=== PATIENT | female | born 1945 | race Caucasian/White ===

== ENCOUNTER → 2019-07-05 11:15 | Outpatient (BNVA) | payer MEDICARE, SELFPAY | PROVIDERS: Family Provider Nurse Practitioner; PCP Nurse Practitioner; Visit Provider Nurse Practitioner | DX: I10 Essential (primary) hypertension (principal); K52.9 Noninfective gastroenteritis and colitis, unspecified; M79.2 Neuralgia and neuritis, unspecified; K22.70 Barrett's esophagus without dysplasia; E78.5 Hyperlipidemia, unspecified | CPT/HCPCS: 80053; 80061; 81003; 84443 ==

== ENCOUNTER → 2019-11-30 15:32 | Outpatient (BNVA) | payer MEDICARE, SELFPAY | PROVIDERS: Family Provider Nurse Practitioner; PCP Nurse Practitioner; Visit Provider Nurse Practitioner | DX: I10 Essential (primary) hypertension (principal); G89.29 Other chronic pain; M79.2 Neuralgia and neuritis, unspecified; E78.5 Hyperlipidemia, unspecified; K22.70 Barrett's esophagus without dysplasia; R01.1 Cardiac murmur, unspecified | CPT/HCPCS: 80053; 80061; 81000; 82607; 84443; 85025 ==

== ENCOUNTER 2020-04-28 07:59 | Outpatient (CLI) | payer MEDICARE, SELFPAY ==
--- NOTE | 2020-04-28 08:45 | USCV_ITS ---
CaseSavanna Age: 74 Gender: F : 1945 Exam Date: 04/28/2020 08:13 Ordering Phys: King Bernard MD ([email or web address]) Technologist: Yelitza Villegas [place] [facility] [place]: cardiac murmur BP: / HR: 55 Rhythm: Sinus Technical Quality: Good MEASUREMENTS (Male / Female) Normal Values 2D ECHO LV Diastolic Diameter PLAX 4.2 cm 4.2 - 5.9 / 3.9 - 5.3 cm LV Systolic Diameter PLAX 1.2 cm IVS Diastolic Thickness 0.9 cm 0.6 - 1.0 / 0.6 - 0.9 cm IVS Systolic Thickness 1.9 cm LVPW Diastolic Thickness 0.7 cm 0.6 - 1.0 / 0.6 - 0.9 cm LVPW Systolic Thickness 1.7 cm LVOT Diameter 1.3 cm LV Ejection Fraction 2D Teich 96.1 % LV Ejection Fraction MOD 2C 87.9 % LV Ejection Fraction 2C AL 89.6 % LA Diameter 4.5 cm LA Width 3.2 cm LA Height 5.9 cm RA Width 3.3 cm RA Height 5.3 cm Aorta at Sinotubular Diameter 2.4 cm M-MODE LV Diastolic Diameter MM 4.3 cm 4.2 - 5.9 / 3.9 - 5.3 cm LV Systolic Diameter MM 1.8 cm LV Ejection Fraction MM Teich 87.3 % IVS Diastolic Thickness MM 1.1 cm 0.6 - 1.0 / 0.6 - 0.9 cm IVS Systolic Thickness MM 1.1 cm LVPW Diastolic Thickness MM 0.8 cm 0.6 - 1.0 / 0.6 - 0.9 cm LVPW Systolic Thickness MM 1.9 cm Aortic Annulus Diameter 2.7 cm LA Ao Ratio MM 1.6 MV E Point Septal Separation 0.3 cm DOPPLER AV Peak Velocity 194.0 cm/s LVOT Peak Velocity 111.0 cm/s AV Area Cont Eq vti 1.2 cm squared AV Area Cont Eq pk 0.8 cm squared MV Peak Velocity 139.0 cm/s MV Area PHT 3.2 cm squared Mitral E to A Ratio 1.6 MV E' Velocity 64.0 cm/s Mitral E to MV E' Ratio 14.7 Mitral E to LV E' Lateral Ratio 16.3 Mitral E to LV E' Septal Ratio 13.4 TR Peak Velocity 249.0 cm/s TR Peak Gradient 24.8 mmHg Right Atrial Pressure 3.0 mmHg Pulmonary Artery Systolic Pressu 27.8 mmHg PV Peak Velocity 86.0 cm/s RV Acceleration Time 0.1 s RV Ejection Time 0.4 s RV AcT/ET 0.2 FINDINGS Left Ventricle Normal left ventricular cavity size. Normal left ventricular systolic function. Left ventricular ejection fraction is estimated at 60 %. No regional wall motion abnormalities. Grade II/IV diastolic dysfunction, moderately elevated filling pressures. Right Ventricle The right ventricle is normal in size and function. Right Atrium The right atrium is normal in size. Left Atrium Moderately increased left atrial size. Mitral Valve Moderately thickened mitral valve. No mitral valve stenosis. Moderate mitral valve regurgitation. Aortic Valve Structurally normal aortic valve without significant sclerosis or stenosis. There is no aortic regurgitation. Tricuspid Valve Brhtrfvo-by-fsksca tricuspid valve regurgitation. Pulmonic Valve Structurally normal pulmonic valve without significant stenosis. There is no pulmonic regurgitation. Pericardium Normal pericardium without effusion. Aorta Normal ascending aorta dimension. CONCLUSIONS 1-Normal left ventricular cavity size. Normal left ventricular systolic function. Left ventricular ejection fraction is estimated at 60 %. No regional wall motion abnormalities. Grade II/IV diastolic dysfunction, moderately elevated filling pressures. 2-Moderately increased left atrial size. 3-Moderately thickened mitral valve. No mitral valve stenosis. Moderate mitral valve regurgitation. 3-Jqpoiavz-ja-severe tricuspid valve regurgitation. 5-There is no pericardial effusion. 6-Right atrial pressure is around 5 mm of mercury. 7-There are no prior echocardiogram studies to compare. King Bernard MD (Electronically Signed) Final Date: 28 April 2020 20:34 S
== END 2020-04-28 08:00 | disposition home or self-care (01) ==
PROVIDERS: PCP Nurse Practitioner; Visit Provider Internal Medicine Cardiovascular Disease
DX: R01.1 Cardiac murmur, unspecified (principal); I34.0 Nonrheumatic mitral (valve) insufficiency; I07.1 Rheumatic tricuspid insufficiency
CPT/HCPCS: 93306

== ENCOUNTER → 2020-06-05 15:23 | Outpatient (BNVA) | payer MEDICARE, SELFPAY | PROVIDERS: PCP Nurse Practitioner; Visit Provider Nurse Practitioner | DX: E78.2 Mixed hyperlipidemia (principal); I10 Essential (primary) hypertension; M79.2 Neuralgia and neuritis, unspecified; G89.29 Other chronic pain; K22.70 Barrett's esophagus without dysplasia; E78.5 Hyperlipidemia, unspecified | CPT/HCPCS: 80053; 80061; 84443 ==

== ENCOUNTER → 2020-12-21 14:30 | Outpatient (BNVA) | payer MEDICARE, SELFPAY | PROVIDERS: PCP Nurse Practitioner; Visit Provider Nurse Practitioner | DX: M79.2 Neuralgia and neuritis, unspecified (principal); I10 Essential (primary) hypertension; G89.29 Other chronic pain; E78.2 Mixed hyperlipidemia; K22.70 Barrett's esophagus without dysplasia | CPT/HCPCS: 80053; 80061; 85025 ==

== ENCOUNTER 2021-02-02 08:46 | Outpatient (CLI) | payer MEDICARE, SELFPAY ==
--- NOTE | 2021-02-02 08:54 | CT_ITS ---
WS: [id number] CT NECK WITH CONTRAST HISTORY: Poking or sticking sensation in her left anterior neck. TECHNIQUE: Contiguous 5 mm axial images are performed through the neck with intravenous contrast. Sag ittal and coronal reformats are also submitted. All CT scans at [facility] use at least one o f these dose optimization techniques: automated exposure control; mA and/or kV adjustment per patient size (includes targeted exams where dose is matched to clinical indication); or iterative reconstruc tion. CONTRAST: CONTRAST: Omnipaque 300; 95 mL IV. DLP: 838.91 mGycm COMPARISON: 12/10/2006 There is artifact causing partial obscuration of the tongue base from dental amalgam. Nasopharynx, oropharynx, hypopharynx and larynx are unremarkable. No soft tissue masses or abnormal e nhancement. Torus tubarius and fossa of Rosenmuller and parapharyngeal fat are normal. No significant lymphadenopathy is identified. Small benign cervical chain lymph nodes but no enlarged lymph nodes. Very similar to the prior study from 2006. Thyroid gland and salivary glands are normally enhancing with no masses. No osseous abnormalities. Visualized portions of the skull base demonstrate no abnormalities. Orbits and globes are within norm al limits. No soft tissue masses. Small amount mucoperiosteal thickening in the posterior LEFT sphenoid sinus. No air-fluid levels. Lung apices are clear. CT/CT neck w con* [id number] IMPRESSION: Stable neck CT. No change since 2006. No suspicious mass or adenopathy.
[2021-02-02] MEDS: iohexol 300 mg/mL 100 mL Btl IV (09:13)
== END 2021-02-02 08:47 | disposition home or self-care (01) ==
PROVIDERS: PCP Nurse Practitioner; Visit Provider Internal Medicine
DX: M54.2 Cervicalgia (principal)
CPT/HCPCS: 70491; Q9967

== ENCOUNTER 2021-02-23 09:22 | Outpatient (CLI) | payer MEDICARE, SELFPAY ==
--- NOTE | 2021-02-23 10:00 | ECG_ITS ---
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 Measurements Intervals [place] Rate: 77 P: NE: QRS: -7 QRSD: 70 T: -6 QT: 358 QTc: 406 Interpretive Statements ATRIAL FIBRILLATION POSSIBLE ANTERIOR MYOCARDIAL INFARCTION , PROBABLY OLD [30 ms Q WAVE IN V3/V4, OR R < 0.2 mV IN V4] ABNORMAL RHYTHM ECG Compared to ECG 12/11/2018 14:19:20 Myocardial infarct finding now present Sinus bradycardia no longer present Electronically Signed On 02-23-2021 18:42:32 CDT by Al Decker M.D. [email or web address]
[2021-02-23 10:28] LABS: Basophils % 0.6 %; Eosinophils # 0.1 10^3/uL (0.0-0.8); Eosinophils % 1.5 %; Hematocrit 44.5 % (37.0-47.0); Hemoglobin 13.9 g/dL (11.5-15.3); Lymphocytes # 1.8 10^3/uL (0.8-4.8); Lymphocytes % 27.4 %; Mean Corpuscular HGB Conc 31.2 g/dL (30.0-36.0); Mean Corpuscular Hemoglobin 29.7 pg (28.0-34.0); Mean Corpuscular Volume 95.1 fl (81-99); Monocytes # 0.8 10^3/uL (0.2-0.9); Monocytes % 12.5 %; Neutrophils # 3.88 10^3/uL (1.8-7.7); Neutrophils % 57.7 %; Nucleated Red Blood Cells % 0 %; Platelet Count 205 10^3/cmm (130-400); Red Blood Count 4.68 10^6/uL (4.1-5.3); White Blood Count 6.7 10^3/uL (4.0-10.0)
[2021-02-23 10:48] LABS: Anion Gap 14.4 (5-19); Blood Urea Nitrogen 19 mg/dL (8-23); Carbon Dioxide 24 mmol/L (22-29); Chloride 106 mmol/L (98-107); Glucose 105 mg/dL (65-115); Osmolality Calculated 291 mOsm/kg (285-295); Potassium 5.4 mmol/L (3.5-5.1); Sodium 139 mmol/L (136-145)
== END 2021-02-23 09:23 | disposition home or self-care (01) ==
PROVIDERS: PCP Nurse Practitioner; Visit Provider Specialist
DX: H65.21 Chronic serous otitis media, right ear (principal); H69.81 Other specified disorders of Eustachian tube, right ear; H90.3 Sensorineural hearing loss, bilateral
CPT/HCPCS: 36415; 80048; 85025; 93005

== ENCOUNTER → 2021-05-14 14:43 | Outpatient (BNVA) | payer MEDICARE, SELFPAY | PROVIDERS: PCP Nurse Practitioner; Visit Provider Nurse Practitioner Family | DX: R07.81 Pleurodynia (principal); I51.7 Cardiomegaly | CPT/HCPCS: 71046 ==

== ENCOUNTER → 2021-07-10 09:51 | Outpatient (BNVA) | payer MEDICARE, SELFPAY | PROVIDERS: PCP Nurse Practitioner; Visit Provider Nurse Practitioner | DX: I10 Essential (primary) hypertension (principal) | CPT/HCPCS: 80048 ==

== ENCOUNTER → 2021-09-14 10:19 | Outpatient (BNVA) | payer MEDICARE, SELFPAY | PROVIDERS: PCP Nurse Practitioner; Visit Provider Nurse Practitioner | DX: I48.91 Unspecified atrial fibrillation (principal); I10 Essential (primary) hypertension; M79.2 Neuralgia and neuritis, unspecified; K22.70 Barrett's esophagus without dysplasia; E78.2 Mixed hyperlipidemia; J30.89 Other allergic rhinitis; J30.2 Other seasonal allergic rhinitis | CPT/HCPCS: 80053; 80061; 84443; 85025 ==

== ENCOUNTER 2021-10-09 10:07 | Outpatient (CLI) | payer MEDICARE, SELFPAY ==
--- NOTE | 2021-10-09 10:00 | FL_ITS ---
WS: [id number] Modified barium swallow, 10/09/2021 Clinical Data: R13.10 - Dysphagia, unspecified Comparison: None. Fluoroscopy time: 1min [id number] # of spot films: Findings: The patient initiated the oral bolus without hesitation. The various materials both thin and thick pr ogressed normally through the hypopharynx. There is no aspiration or penetration. FL/FL barium swallow modifd [id number] Impression: Normal modified barium swallow.
== END 2021-10-09 10:08 | disposition home or self-care (01) ==
LOC: RAD 10:09
PROVIDERS: PCP Nurse Practitioner; Visit Provider Nurse Practitioner
DX: R13.10 Dysphagia, unspecified (principal)
CPT/HCPCS: 74230; 92611

== ENCOUNTER → 2022-03-06 11:56 | Outpatient (BNVA) | payer MEDICARE, SELFPAY | PROVIDERS: PCP Nurse Practitioner; Visit Provider Internal Medicine Cardiovascular Disease | DX: M79.673 Pain in unspecified foot (principal); I48.91 Unspecified atrial fibrillation; Z79.01 Long term (current) use of anticoagulants; K22.70 Barrett's esophagus without dysplasia; I10 Essential (primary) hypertension; E78.2 Mixed hyperlipidemia; Z87.891 Personal history of nicotine dependence | CPT/HCPCS: 99213 ==

== ENCOUNTER → 2022-04-08 14:54 | Outpatient (BNVA) | payer MEDICARE, SELFPAY | PROVIDERS: PCP Nurse Practitioner; Visit Provider Nurse Practitioner | DX: I10 Essential (primary) hypertension (principal); M79.2 Neuralgia and neuritis, unspecified; K22.70 Barrett's esophagus without dysplasia; I48.91 Unspecified atrial fibrillation; E78.2 Mixed hyperlipidemia; G89.29 Other chronic pain; J30.89 Other allergic rhinitis; J30.2 Other seasonal allergic rhinitis | CPT/HCPCS: 80053; 80061; 84443 ==

== ENCOUNTER 2022-04-22 12:35 | Outpatient (CLI) | payer MEDICARE, SELFPAY ==
--- NOTE | 2022-04-22 13:45 | USCV_ITS ---
CaseSavanna Age: 76 Gender: F : 1945 Exam Date: 04/22/2022 13:04 Ordering Phys: Rachid Hall MD ([email or web address]) Technologist: Jami Thorne Exam Location: [facility] [place] Indication: Foot numbness and pain Risk Factors: Unknown Previous Vascular Surgery: None RIGHT LEFT BP: 157.0 / 75.00 BP: 153.0/ 89.00 0 0 Waveform Velocity (cm/s) Velocity (cm/s) Waveform Biphasic 78.9 Iliac Prox 95.9 Biphasic Biphasic Iliac Mid Biphasic 65.2 93.4 Biphasic 47.2 Iliac Distal 103.5 Biphasic Biphasic 68.6 MATHEMATICS EDUCATION PROFESSOR 97.2 Biphasic Biphasic 61.7 SFA Prox 64.3 Biphasic Biphasic 56.9 SFA Mid 71.9 Biphasic Biphasic 55.5 SFA Dist 53.0 Biphasic Biphasic 53.4 POP 59.3 Biphasic Biphasic 38.4 INSPECTOR SUBASSEMBLIES 27.8 Biphasic Biphasic 16.9 DPA 32.2 Biphasic 0.9 OMAR 1.0 FINDINGS RT INSPECTOR SUBASSEMBLIES 140 RT DPA 130 LT INSPECTOR SUBASSEMBLIES 90 LT DPA 150 Resting OMRA of 0.9 on the right and 1.0 on the left side Mild to moderate diffuse plaque in the iliac and femoral arteries bilaterally CONCLUSIONS 1. Mild to moderate diffuse plaques in the iliac and femoral arteries bilaterally 2. Slightly diminished resting OMAR of 0.9 on the right side suggesting mild peripheral artery disease 3. Normal resting OMAR of 1.0 on the left side, suggesting no significant arterial obstruction. No similar previous studies are available for comparison Dr Rissa Smith MD [facility] (Electronically Signed) Final Date: 23 April 2022 21:28 S
== END 2022-04-22 12:36 | disposition home or self-care (01) ==
PROVIDERS: PCP Nurse Practitioner; Visit Provider Internal Medicine Cardiovascular Disease
DX: M79.671 Pain in right foot (principal); M79.672 Pain in left foot
CPT/HCPCS: 93925

== ENCOUNTER 2022-07-05 09:53 | Outpatient (CLI) | payer MEDICARE, SELFPAY ==
--- NOTE | 2022-07-05 10:03 | FL_ITS ---
WS: [id number] Exam: FL barium swallow [id number] Date/Time of Exam: 07/05/2022 10:24 AM Reason For Exam: OTHER DYSPHAGIA Fluoroscopy time: 1min [id number] minutes # of spot films: 9 Swallowing function at the level of oropharynx was normal. The esophagus is smooth in contour with no rmal motility. No esophageal mass or stricture. No hiatal hernia or gastroesophageal reflux. The esop hagus is not displaced. No aspiration or penetration identified. FL/FL barium swallow [id number] IMPRESSION: 1. Negative esophagram.
== END 2022-07-05 09:54 | disposition home or self-care (01) ==
LOC: RAD 09:56
PROVIDERS: PCP Nurse Practitioner; Visit Provider Specialist
DX: R13.19 Other dysphagia (principal)
CPT/HCPCS: 74220

== ENCOUNTER → 2022-07-15 14:20 | Outpatient (BNVA) | payer MEDICARE, SELFPAY | PROVIDERS: PCP Nurse Practitioner; Visit Provider Nurse Practitioner Family | DX: R19.7 Diarrhea, unspecified (principal); R19.5 Other fecal abnormalities | CPT/HCPCS: 87493; 87506 ==

== ENCOUNTER → 2022-07-16 10:35 | Outpatient (BNVA) | payer MEDICARE, SELFPAY | PROVIDERS: PCP Nurse Practitioner; Visit Provider Nurse Practitioner Family | DX: R19.7 Diarrhea, unspecified (principal) | CPT/HCPCS: 82274 ==

== ENCOUNTER → 2022-07-18 14:58 | Outpatient (BNVA) | payer MEDICARE, SELFPAY | PROVIDERS: PCP Nurse Practitioner; Visit Provider Nurse Practitioner Family | DX: I48.91 Unspecified atrial fibrillation (principal); I10 Essential (primary) hypertension; Z87.891 Personal history of nicotine dependence; Z79.01 Long term (current) use of anticoagulants | CPT/HCPCS: 93005; 99214 ==

== ENCOUNTER 2022-07-23 08:15 | Outpatient (CLI) | payer MEDICARE, SELFPAY ==
[2022-07-23 09:31] VITALS: BMI 29.2
--- NOTE | 2022-07-23 09:31 | NMCV_ITS ---
NM marisol perf SPECT r/s* [id number] Case, Savanna Age: 77 Gender: F : 1945 Exam Date: 07/23/2022 09:31 Ordering Phys: Jodi Lara Technologist: CONTRERAS Garcia Exam Location: [facility] [place] Indications: AFIB STRESS TEST Please see separate stress test report in [facility] for full findings IMAGE PROTOCOL Rest/Stress 1 Lexiscan Day Radiopharmaceutical Dose (mCi) Administration Site Administered by Rest: Tc-99m 10.7 IV CONTRERAS Melchor Sestamibi Stress:Tc-99m 33.0 IV CONTRERAS Melchor Sestamibi Rest: 23-Jul-2022 60 Discovery 630 Stress: 23-Jul-2022 30 Discovery 630 0.4mg Lexiscan. Images obtained in supine and prone position. SPECT RESULTS Technical Quality: Excellent Raw Data Analysis: Normal Image Corrections: No attenuation or motion correction applied Summed Stress Score: 0 Summed Rest Score: 0 Summed Difference Score: 0 PERFUSION FINDINGS Fairly uniform myocardial tracer uptake with no significant perfusion abnormalities FUNCTIONAL RESULTS (calculated via Gated SPECT) Stress Image LV EF (%): 85 Stress EDV (mL):40 TID: 1.19 Stress ESV (mL):6 FUNCTIONAL FINDINGS: Segmental wall motion analysis revealing no gross wall motion abnormalities. The transient ischemic dilatation ratio was found to be elevated to 1.19 IMPRESSIONS 1. Myocardial perfusion imaging revealing fairly uniform myocardial tracer uptake with no significant perfusion abnormalities. 2. Normal LV ejection fraction of 83%. 3. LV wall motion analysis revealing no gross wall motion abnormalities. 4. Normal LV volume 5. Slightly elevated transient ischemic dilatation ratio of 1.19 may assess endocardial ischemia. However the positive predictive value of this finding is limited. No similar previous studies are available for comparison. Low probability for coronary ischemia, based on the above findings Dr Rissa Smith MD [facility] (Electronically Signed) Final Date: 23 July 2022 12:06 S
--- NOTE | 2022-07-23 09:31 | ECG_ITS ---
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 Interpretive Statements NAME OF STUDY: LEXISCAN SESTAMIBI STRESS TEST INDICATION: Chest Pain, PROCEDURE: At the baseline, the EKG revealed atrial fibrillation with a controlled ventricular response rate of 70 bpm. The baseline heart was 70 bpm with a blood pressue of 145/76 mm of Hg Lexiscan was infused over a period of 20 seconds. A total of 0.4 milligrams of Lexiscan was infused. The stress phase was continued for a total of 5 minutes. Heart rate at the end of the stress phase was 86 bpm with a blood pressure 170/78 mm of Hg. The EKG at the peak infusion revealed no significant changes. Sestamibi was injected 20 seconds after the Lexiscan infusion. Heart rate at the end of the recovery phase was 84 bpm with a blood pressure of 132/87 mm of Hg. no significant changes Chest Pain, CONCLUSION: 1. No significant EKG changes with the LexiScan infusion 2. No LexiScan induced chest pain or cardiac arrhythmia 3. Normal blood pressure and heart rate response 4. Sestamibi/sestamibi perfusion scan pending; see separate report. Electronically Signed On 07-23-2022 15:46:08 CDT by Rissa Smith M.D. [id number]
[2022-07-23] MEDS: regadenoson 0.4 Mg/5 ml Syringe IVP (10:21)
[2022-07-23 10:36] VITALS: BP 132/87; PULSE 76
== END 2022-07-23 08:16 | disposition home or self-care (01) ==
PROVIDERS: PCP Nurse Practitioner; Visit Provider Nurse Practitioner Family
DX: R07.9 Chest pain, unspecified (principal)
CPT/HCPCS: 36415; 78452; 93017; 96374; A9500; J2785

== ENCOUNTER → 2022-08-13 15:14 | Outpatient (BNVA) | payer MEDICARE, SELFPAY | PROVIDERS: PCP Nurse Practitioner; Visit Provider Orthopaedic Surgery | DX: M65.311 Trigger thumb, right thumb (principal) | CPT/HCPCS: 20550; 99203; J0702; J3490 ==

== ENCOUNTER → 2022-09-03 09:37 | Outpatient (BNVA) | payer MEDICARE, SELFPAY | PROVIDERS: PCP Nurse Practitioner; Visit Provider Podiatrist Foot & Ankle Surgery | DX: M21.6X1 Other acquired deformities of right foot (principal); M21.6X2 Other acquired deformities of left foot; M77.41 Metatarsalgia, right foot; M77.42 Metatarsalgia, left foot; L90.9 Atrophic disorder of skin, unspecified; M54.16 Radiculopathy, lumbar region | CPT/HCPCS: 73630; 99203 ==

== ENCOUNTER → 2022-09-04 11:58 | Outpatient (BNVA) | payer MEDICARE, SELFPAY | PROVIDERS: PCP Nurse Practitioner; Visit Provider Internal Medicine Cardiovascular Disease | DX: I48.91 Unspecified atrial fibrillation (principal); Z79.01 Long term (current) use of anticoagulants; I10 Essential (primary) hypertension; E78.2 Mixed hyperlipidemia; Z87.891 Personal history of nicotine dependence | CPT/HCPCS: 99213 ==

== ENCOUNTER → 2022-10-21 11:40 | Outpatient (BNVA) | payer MEDICARE, SELFPAY | PROVIDERS: PCP Nurse Practitioner; Visit Provider Nurse Practitioner | DX: I10 Essential (primary) hypertension (principal); E78.5 Hyperlipidemia, unspecified | CPT/HCPCS: 80053; 80061; 84443; 85025 ==

== ENCOUNTER 2022-10-30 11:46 | Outpatient (CLI) | payer MEDICARE, SELFPAY ==
--- NOTE | 2022-10-30 12:00 | US_ITS ---
WS: [id number] ULTRASOUND THYROID TECHNIQUE: Ultrasound of the thyroid. CLINICAL INFORMATION: E04.9 - Nontoxic goiter, unspecified COMPARISON: None. FINDINGS: Thyroid: Diffusely heterogeneous and somewhat enlarged thyroid gland for patient this age. No suspici ous nodules to target for biopsy Correlation with thyroid function studies. Right thyroid lobe: 4.2 cm x 1.5 cm x 1.3 cm Left thyroid lobe: 3.0 cm x 1.7 cm x 1.7 cm. Isthmus: 0.7 mm. Cervical lymphadenopathy: None. US/US thyroid [id number] IMPRESSION: 1. Thyroid enlargement for patient this age with diffuse heterogeneous thyroid echotexture.Correlation with thyroid function studies. 2. No suspicious nodules to target for biopsy.
== END 2022-10-30 11:47 | disposition home or self-care (01) ==
PROVIDERS: PCP Nurse Practitioner; Visit Provider Nurse Practitioner
DX: E04.9 Nontoxic goiter, unspecified (principal)
CPT/HCPCS: 76536

== ENCOUNTER → 2022-11-14 09:43 | Outpatient (BNVA) | payer MEDICARE, SELFPAY | PROVIDERS: PCP Nurse Practitioner; Visit Provider Nurse Practitioner | DX: E04.9 Nontoxic goiter, unspecified (principal) | CPT/HCPCS: 84439; 84481; 86800 ==

== ENCOUNTER 2022-11-25 15:58 | Outpatient (CLI) | payer MEDICARE, SELFPAY ==
--- NOTE | 2022-11-25 16:28 | CTR_ITS ---
PROCEDURE INFORMATION: Exam: CT Chest Without Contrast; Diagnostic Exam date and time: 11/25/2022 4:45 PM Age: 77 years old Clinical indication: Shortness of breath; Additional info: R06.02 - shortness of breath TECHNIQUE: Imaging protocol: Diagnostic computed tomography of the chest without contrast. Radiation optimization: All CT scans at this facility use at least one of these dose optimization techniques: automated exposure control; mA and/or kV adjustment per patient size (includes targeted exams where dose is matched to clinical indication); or iterative reconstruction. REPORTING DATA: Count of CT and Cardiac NM exams in prior 12 months: This patient has received [address] and 0 known cardiac nuclear medicine studies in the 12 months prior to the current study. COMPARISON: CR XR chest 2V* [id number] 05/14/2021 2:42 PM RADIATION DOSE METRICS: Total DLP (mGy-cm): 205.04 FINDINGS: Lungs: 4 mm solid nodule in the anterior segment of the right upper lobe (axial series 5, image 20). 4 mm solid nodule in the lateral basal segment of the right lower lobe (axial series 5, image 34). 6 mm pleural-based nodule in the lateral basal segment of the left lower lobe (axial series 5, image 45). Calcified granuloma in the lingula. No significant airspace consolidation concerning for pneumonia. Pleural spaces: No pleural effusion. No pneumothorax. Heart: The heart is within normal limits for size. There is no evidence of pericardial abnormality. Coronary arteries: Coronary artery calcifications noted. Lymph nodes: The supraclavicular region appears normal. There are no enlarged lymph nodes in the axilla. There are no enlarged lymph nodes in the mediastinal or hilar regions. Vasculature: Unremarkable. No aortic aneurysm. Stomach and bowel: Postsurgical changes at the gastroesophageal junction. Bones/joints: Multilevel degenerative changes in the spine. Soft tissues: Unremarkable. CT/CT chest wo con [id number] IMPRESSION: 1. No significant airspace consolidation concerning for pneumonia. 2. Multiple pulmonary nodules noted, the largest of which measures up to 6 mm. For patients at low risk (minimal or absent history of smoking and of other known risk factors), recommend CT Chest at 6-12 months, then consider CT Chest at 18-24 months. For patients at high risk (history of smoking or of other known risk factors), recommend CT Chest at 6-12 months, then CT Chest at 18-24 months. (Reference: Jaylen) REFERENCES: Jaylen Juárez, et al. Guidelines for Management of Incidental Pulmonary Nodules Detected on CT Images: From the Fleischner Society 2017. Radiology. 2017;284(1):228-243.
== END 2022-11-25 15:59 | disposition home or self-care (01) ==
PROVIDERS: PCP Nurse Practitioner; Visit Provider Nurse Practitioner
DX: R06.02 Shortness of breath (principal); R19.8 Other specified symptoms and signs involving the digestive system and abdomen
CPT/HCPCS: 71250; 80053; 80061; 84443; 85025

== ENCOUNTER → 2023-03-27 16:35 | Outpatient (BNVA) | payer MEDICARE, SELFPAY | PROVIDERS: PCP Nurse Practitioner; Visit Provider Nurse Practitioner | DX: I48.91 Unspecified atrial fibrillation (principal) | CPT/HCPCS: 85610 ==

== ENCOUNTER → 2023-04-09 11:40 | Outpatient (BNVA) | payer MEDICARE, SELFPAY | PROVIDERS: PCP Nurse Practitioner; Visit Provider Nurse Practitioner | DX: I48.91 Unspecified atrial fibrillation (principal) | CPT/HCPCS: 85610 ==

== ENCOUNTER → 2023-04-14 09:15 | Outpatient (BNVA) | payer MEDICARE, SELFPAY | PROVIDERS: PCP Nurse Practitioner; Visit Provider Nurse Practitioner | DX: Z79.01 Long term (current) use of anticoagulants (principal) | CPT/HCPCS: 85610 ==

== ENCOUNTER → 2023-04-22 16:23 | Outpatient (BNVA) | payer MEDICARE, SELFPAY | PROVIDERS: PCP Nurse Practitioner; Visit Provider Nurse Practitioner | DX: I48.91 Unspecified atrial fibrillation (principal) | CPT/HCPCS: 85610 ==

== ENCOUNTER → 2023-05-28 13:50 | Outpatient (BNVA) | payer MEDICARE, SELFPAY | PROVIDERS: PCP Nurse Practitioner; Visit Provider Nurse Practitioner | DX: Z79.01 Long term (current) use of anticoagulants (principal) | CPT/HCPCS: 85610 ==

== ENCOUNTER → 2023-06-19 14:17 | Outpatient (BNVA) | payer MEDICARE, SELFPAY | PROVIDERS: PCP Nurse Practitioner; Visit Provider Nurse Practitioner | DX: I48.91 Unspecified atrial fibrillation (principal) | CPT/HCPCS: 85610 ==

== ENCOUNTER → 2023-07-17 14:34 | Outpatient (BNVA) | payer MEDICARE, SELFPAY | PROVIDERS: PCP Nurse Practitioner; Visit Provider Nurse Practitioner | DX: I48.91 Unspecified atrial fibrillation (principal) | CPT/HCPCS: 85610 ==

== ENCOUNTER → 2023-07-29 14:27 | Outpatient (BNVA) | payer MEDICARE, SELFPAY | PROVIDERS: PCP Nurse Practitioner; Visit Provider Nurse Practitioner | DX: I48.91 Unspecified atrial fibrillation (principal) | CPT/HCPCS: 85610 ==

== ENCOUNTER → 2023-08-05 15:52 | Outpatient (BNVA) | payer MEDICARE, SELFPAY | PROVIDERS: PCP Nurse Practitioner; Visit Provider Nurse Practitioner | DX: I48.91 Unspecified atrial fibrillation (principal) | CPT/HCPCS: 85610 ==

== ENCOUNTER 2023-08-08 10:24 | Emergency (ER) | payer MEDICARE, SELFPAY ==
[2023-08-08 10:42] VITALS: BP 164/107; PULSE 102; RESP 15; O2SAT 96
--- NOTE | 2023-08-08 10:53 | W.ED.EXTPRO ---
HPI - Extremity Problem General: Chief complaint: Extremity Problem,Nontraumatic Stated complaint: left leg pain Time Seen by Provider: 08/08/23 10:41 Source: patient and family Mode of arrival: wheelchair Limitations: no limitations History of Present Illness: Patient is an 78-year-old female presents to ED today with complaint of left leg pain. Patient states she underwent a sounds to be a hysterectomy with cystocele/rectocele repair by surgeon in [place] 6 days ago. Patient states she noticed leg pain after waking from anesthesia. She states they did do some type of spinal block but states this was unsuccessful as during the procedure she felt pain shooting down my leg so she declined further attempts and procedure was aborted. Patient does have a history of lower back pain with radiculopathy and states she has had issues with her sciatica before. She has seen her primary care provider for this. She was seen by them a few days ago and had trigger point injections performed throughout the left hip. Patient is not noticed swelling to the left leg. She does complain of some calf pain. No neurologic deficits. No fevers. MD Complaint: extremity pain Onset (ago): day(s) Pain Consistency: constant Location: left and lower extremity Radiation: none Relieving factors: nothing Exacerbating factors: nothing Associated symptoms: Reports no associated symptoms; Deny chest pain, fever(s) or rash Context: recent surgery/procedure Review of Systems Const: Denies: fever(s), chills, body aches, fatigue or malaise Card: Denies: chest pain Resp: Denies: dyspnea GI: Denies: abdominal pain : Denies: flank pain, dysuria or hematuria Musc: Reports: back pain and extremity pain; Denies: neck pain, extremity swelling, joint pain, joint swelling, joint redness, joint warmth, joint stiffness, limited range of motion, muscle cramps or muscle weakness Skin/Breast: Denies: rash Neuro: Denies: headache(s), numbness in extremities, weakness in extremities or sensory changes [facility] ED PFSH: Medical History Anticoagulation adequate with anticoagulant therapy Foot pain Seasonal and perennial allergic rhinitis Anxiety diarrhea Heart murmur Chronic neuropathic pain Chronic colitis Chronic diarrhea Ag's esophagus Hyperlipidemia Essential (primary) hypertension Surgical History History of esophagogastroduodenoscopy (EGD) S/P colonoscopy S/P carpal tunnel release S/P cataract extraction Both eyes History of repair of hiatal hernia Family History Other Diabetes Heart disease Social History Smoking and tobacco/nicotine status: former use of tobacco/nicotine Second hand smoke exposure: No Alcohol intake: never Substance/Drug Use: never Adopted: No Caregiver/support person: No Lives independently: Yes Household members: spouse Housing: House Marital status: service: No Current occupational status: retired Do you think of yourself as: Straight/Heterosexual Current gender identity: Female Physical Exam Const: COMMON NORMALS: no acute distress, average body habitus, patient oriented x3, no limitations, healthy appearing, alert and well nourished Back/Pelvis: COMMON NORMALS: thoracic and lumbar spine normal to inspection LUMBAR SPINE/LOWER BACK: Yes lumbar spinal tenderness, Yes paraspinal muscle tenderness, No paraspinal muscle spasm, No mass present and Yes straight leg raise negative bilaterally PELVIS: Yes buttocks normal SACRUM: no tenderness COCCYX: no tenderness OTHER: no redness/warmth/swelling at recent injection sites or spinal anesthesia site Extremity: COMMON NORMALS: normal to inspection, full ROM, capillary refill normal, no joint enlargement, no clubbing, cyanosis or edema and no pedal edema GENERAL: Yes normal exam except as noted and Yes other findings (calf pain/no swelling) Neuro: COMMON NORMALS: patient oriented x3, moves all extremities, no focal motor deficits and no sensory deficits noted SENSORIUM/ORIENTATION: Yes alert Skin: COMMON NORMALS: no rashes or lesions noted GENERAL SKIN EXAM: no rashes or lesions noted Course Vital Signs: Vital signs: Vital Signs Pulse Rate 102 H 08/08/23 10:42 Respiratory Rate 16 08/08/23 11:25 Blood Pressure 164/107 08/08/23 10:42 Pulse Oximetry 96 08/08/23 10:42 Oxygen Delivery Me thod Room Air 08/08/23 10:42 MDM - Extremity (Nontraumatic) Medical Decision Making Patient here with complaints of left leg pain. She is status post surgery 6 days ago. She was taken off of her anticoagulation prior to the surgery. Ultrasound ordered to rule out DVT due to these risk factors. She has had similar discomfort before. She did mention that she noticed pain after waking from anesthesia which would make a DVT clinically unlikely. At this point I do not have any concern for infection with her spinal. Certainly symptoms could be exacerbated by surgery/OR table positioning. Patient was given IM morphine/zofran here and feels much better. She states she has hydrocodone at home she can take. Will put her on muscle relaxers and a steroid. She states she has follow-up with primary care on 08/18 for follow-up. Return ED precautions given. All radiology interpretation(s) finalized by discharge Discharge Plan Discharge Patient Disposition: Home Clinical Impression: Radicular pain of left lower extremity Condition: Stable Prescriptions: New cyclobenzaprine 10 mg tablet 10 mg PO TID Qty: 14 0RF prednisone 10 mg tablet 10 mg PO DAILY 6 Days Qty: 20 0RF Rx Instructions: Take 5 tabs on day 1-2, 4 tabs on day 3, 3 tabs on day 4, 2 tabs on day 5, and 1 tab on day 6 No Action duloxetine [Cymbalta] 20 mg capsule,delayed release(DR/EC) 20 mg PO BID Qty: 180 1RF furosemide 20 mg tablet 20 mg PO DAILY PRN (Reason: for fluid) Qty: 90 1RF warfarin 3 mg tablet 3 mg PO DAILY Qty: 30 1RF Rx Instructions: dose change to 3mg day gabapentin 100 mg capsule 100 mg PO TID ibuprofen 800 mg tablet 800 mg PO TID PRN (Reason: Pain) Premarin 0.625 mg/gram cream See Rx Instructions .ROUTE .COMPLEX Rx Instructions: insert 1 gram VAGINALLY three times PER WEEK AT bedtime (ON HOLD 08/08/23) metoprolol succinate 100 mg tablet extended release 24 hr 100 mg PO BEDTIME hydrocodone-acetaminophen 5-325 mg tablet 1 tab PO Q6H PRN (Reason: Pain) Tylenol Ex Str Rapid Release 500 mg Tablet 1,500 mg PO Q6H PRN (Reason: Pain) diltiazem HCl 120 mg capsule,extended release 24 hr 120 mg PO QAM pantoprazole 40 mg tablet,delayed release (DR/EC) 40 mg PO QAM Diovan 320 mg tablet 320 mg PO QAM Allergy Relief (fluticasone) 50 mcg/actuation spray,suspension 1 spray INTRANASAL DAILY PRN (Reason: Allergy Symptoms) Crestor 20 mg tablet 20 mg PO QAM Discharge Orders: Discharge ED (Routine); Ordered 08/08/23 Ordered By: Rachel Alves Referrals: Harley Carolina, CASIMIRO [Primary Care Provider] - Activity Restrictions/Additional Instructions: As we discussed we will trial you on some steroids and muscle relaxers to see if this helps with your discomfort. You may follow-up with primary care as currently scheduled. Coding Level of Care Code ED Cable Braider for Pj Munguia
--- NOTE | 2023-08-08 11:00 | USCV_ITS ---
CaseSavanna Age: 78 Gender: F : 1945 Exam Date: 08/08/2023 11:45 Ordering Phys: Rachel Alves Technologist: MATTHEW Exam Location: [facility] [place] Indication: LE Pain post hysterectomy HISTORY: Lower extremity pain. PROCEDURES: Venous duplex imaging was performed in only the left lower extremity. The following venous structures were evaluated: common femoral vein, profunda vein, proximal portion of the greater saphenous vein, superficial femoral vein, and the popliteal vein. In addition, the posterior tibial and peroneal trunk were evaluated. Serial compression, augmentation maneuvers, and spectral Doppler flow evaluation were performed. FINDINGS: Normal 2-D Doppler and augmentation and compressibility throughout the lower extremity venous structures. Additional imaging through the proximal calf veins also reveals no thrombus. Limited evaluation of the greater saphenous vein is patent with no thrombus. CONCLUSIONS No DVT left lower extremity. Dr. Mattie Bahena DO (Electronically Signed) Final Date: 08 August 2023 13:46 S
--- NOTE | 2023-08-08 11:01 | PC.PHAR ---
PT STATES SHE TAKES CARE OF HER OWN MEDICATIONS-PT STATES SHE TAKES GABAPENTIN 100MG TID EXT DOESNT SHOW WHEN LAST FILLED-PT STATES SHE HAS ONE TAB LEFT OF NORCO 5-325MG Q6H PRN LEFT-PT STATES NOT TAKEN VITAMIN D3 1000 UNITS DAILY IN A MONTH-PT STATES HER PREMARIN CREAM IS ON HOLD-
[2023-08-08 11:25] VITALS: RESP 16
[2023-08-08] MEDS: morphine 4 mg/mL SDV 1 mL IM (11:25)
[2023-08-08] MEDS: ondansetron 2 mg/ML SDV 2 mL 4 MG IM (11:25)
[2023-08-08] MEDS: dexamethasone 10 mg/mL INJ 8 MG IM (12:21)
[2023-08-08 12:36] VITALS: BP 155/102; PULSE 86; RESP 14; O2SAT 98
== END 2023-08-08 12:38 | disposition home or self-care (01) ==
PROVIDERS: Emergency Provider Physician Assistant; PCP Nurse Practitioner
DX: M54.10 Radiculopathy, site unspecified (principal); Z79.01 Long term (current) use of anticoagulants; E78.5 Hyperlipidemia, unspecified; I10 Essential (primary) hypertension; Z87.891 Personal history of nicotine dependence
CPT/HCPCS: 93971; 96372; 99284; J1100; J2270; J2405

== ENCOUNTER 2023-08-21 06:00 | Outpatient (RCR) | payer MEDICARE, SELFPAY | END 2023-09-09 23:59 | disposition home or self-care (01) | LOC: TPT 06:00 | PROVIDERS: PCP Nurse Practitioner; Visit Provider Nurse Practitioner | DX: M54.16 Radiculopathy, lumbar region (principal) | CPT/HCPCS: 97110; 97162 ==

== ENCOUNTER → 2023-08-21 14:24 | Outpatient (BNVA) | payer MEDICARE, SELFPAY | PROVIDERS: PCP Nurse Practitioner; Visit Provider Nurse Practitioner | DX: Z79.01 Long term (current) use of anticoagulants (principal) | CPT/HCPCS: 85610 ==

== ENCOUNTER → 2023-09-04 11:17 | Outpatient (BNVA) | payer MEDICARE, SELFPAY | PROVIDERS: PCP Nurse Practitioner; Visit Provider Nurse Practitioner | DX: I48.91 Unspecified atrial fibrillation (principal) | CPT/HCPCS: 85610 ==

== ENCOUNTER 2023-09-10 06:00 | Outpatient (RCR) | payer MEDICARE, SELFPAY | END 2023-10-10 23:59 | disposition home or self-care (01) | LOC: TPT 06:00 | PROVIDERS: PCP Nurse Practitioner; Visit Provider Nurse Practitioner | DX: M54.16 Radiculopathy, lumbar region (principal) | CPT/HCPCS: 97110 ==

== ENCOUNTER → 2023-10-01 09:56 | Outpatient (BNVA) | payer MEDICARE, SELFPAY | PROVIDERS: PCP Nurse Practitioner; Visit Provider Nurse Practitioner | DX: I35.0 Nonrheumatic aortic (valve) stenosis (principal); I48.91 Unspecified atrial fibrillation; M79.2 Neuralgia and neuritis, unspecified; G89.29 Other chronic pain; I10 Essential (primary) hypertension; Z79.899 Other long term (current) drug therapy | CPT/HCPCS: 81000; 85610 ==

== ENCOUNTER → 2023-10-29 10:47 | Outpatient (BNVA) | payer MEDICARE, SELFPAY | PROVIDERS: PCP Nurse Practitioner; Visit Provider Nurse Practitioner | DX: I35.0 Nonrheumatic aortic (valve) stenosis (principal); I10 Essential (primary) hypertension; I48.91 Unspecified atrial fibrillation; K22.70 Barrett's esophagus without dysplasia; E78.2 Mixed hyperlipidemia; G89.29 Other chronic pain; M54.16 Radiculopathy, lumbar region; E55.9 Vitamin D deficiency, unspecified; R01.1 Cardiac murmur, unspecified | CPT/HCPCS: 80053; 80061; 82306; 82607; 84443; 85610 ==

== ENCOUNTER → 2023-12-24 13:59 | Outpatient (BNVA) | payer MEDICARE, SELFPAY | PROVIDERS: PCP Nurse Practitioner; Visit Provider Nurse Practitioner | DX: I35.0 Nonrheumatic aortic (valve) stenosis (principal) | CPT/HCPCS: 85610 ==

== ENCOUNTER 2024-01-21 06:00 | Outpatient (CLI) | payer MEDICARE, SELFPAY | END 2024-01-21 06:01 | disposition home or self-care (01) | LOC: SLEEP 01-27 06:43 | PROVIDERS: PCP Nurse Practitioner; Visit Provider Nurse Practitioner | DX: I35.0 Nonrheumatic aortic (valve) stenosis (principal) | CPT/HCPCS: 85610 ==

== ENCOUNTER → 2024-02-18 13:31 | Outpatient (BNVA) | payer MEDICARE, SELFPAY | PROVIDERS: PCP Nurse Practitioner; Visit Provider Nurse Practitioner | DX: I35.0 Nonrheumatic aortic (valve) stenosis (principal) | CPT/HCPCS: 85610 ==

== ENCOUNTER → 2024-03-23 14:16 | Outpatient (BNVA) | payer MEDICARE, SELFPAY | PROVIDERS: PCP Nurse Practitioner; Visit Provider Nurse Practitioner | DX: I10 Essential (primary) hypertension (principal); I48.91 Unspecified atrial fibrillation; E78.2 Mixed hyperlipidemia | CPT/HCPCS: 80053; 80061; 85025; 85610 ==